=== PATIENT | male | born 1995 | race Caucasian/White ===

== ENCOUNTER 2016-11-09 14:33 | Emergency (ER) | payer OTHER ==
[~2016-11-09] VITALS: Ht 185.4 cm; Wt 127.3 kg
[~2016-11-09 14:33] MED LIST: CIPRO500 MG PO; MOTRIN600 MG PO; MOTRIN800 MG PO; NORCO 7.5/321 TABLET PO
[2016-11-09 14:40] VITALS: BP 153/80
[2016-11-09] MEDS ORDERED: NAPROSYN500 MG PO (16:15)
[2016-11-09] MEDS ORDERED: ULTRAM50 MG PO (16:15)
== END 2016-11-09 16:40 | disposition home or self-care (01) ==
LOC: EME 14:33
DX: S76.812A Strain of other specified muscles, fascia and tendons at thigh level, left thigh, initial encounter (principal); X50.1XXA Overexertion from prolonged static or awkward postures, initial encounter; Y99.0 Civilian activity done for income or pay; Y93.02 Activity, running
CPT/HCPCS: 99281; 99284

== ENCOUNTER → 2017-06-25 | Outpatient (CLI) | payer OTHER ==
[~2017-06-25] MED LIST changes: +NAPROSYN500 MG PO; +ULTRAM50 MG PO
== END | disposition home or self-care (01) ==
LOC: AMB 11:51 → OPR 13:00 → AMB 13:00
DX: K52.9 Noninfective gastroenteritis and colitis, unspecified (principal); K64.8 Other hemorrhoids; R10.30 Lower abdominal pain, unspecified; K62.5 Hemorrhage of anus and rectum; Z80.0 Family history of malignant neoplasm of digestive organs; R15.2 Fecal urgency
CPT/HCPCS: 88305; J2250; J3010